=== PATIENT | female | born 1925 | race Caucasian/White ===

== ENCOUNTER 2016-05-10 19:14 | Emergency (ER) | payer MEDICARE, OTHER ==
[~2016-05-10] VITALS: Ht 160 cm; Wt 52.6 kg
[~2016-05-10 19:14] MED LIST: ****K-Phos500 MG PO; ASPIRIN E.C.325 MG PO; ASPIRIN E.C.81 MG PO; AUGMENTIN 500 M1 TAB PO; B-12-SL1000 MCG SL; B12,B-12,B 12500 MC1 PO; B121000 MCG/2 IM; BACTRIM DS 8001 TA1 PO; CEFUROXIME250 MG PO; CHILDREN'S CHEW81 MG PO; CITALOPRAM10 MG PO; CLARITIN10 MG PO; COLESTIPOL HYDRO1 GM PO; DIFLUCAN100 MG PO; DUREZOL 5 ML5 ML OS; EYE VITAMINS1 TAB PO; FLONASE 0.05% 121 EA NAS; FLORASTOR250 MG PO; K-PHOS500 MG PO; LASIX20 MG PO; LEADER NATURA500 MCG PO; LOMOTIL 0.025 M1 TAB PO; LOPRESSOR25 MG PO; MICRONIZED COLES1 GM PO; MONISTAT 72% VG; MUCINEX600 MG PO; MULTI-VITAMIN1 CTB PO; MULTI-VITAMIN1 EACH PO; NASONEX0.05 MG/AC OT; NEOMYCIN500 MG PO; Ocuflox 0.3% 5 M5 ML OT; PRESERVISION A1 EAC1 PO; PRESERVISION AR1 SGL PO; PROLENSA1.6 ML OS; PROPAFENONE HC150 MG PO; PYRIDIUM200 M1 PO; TERAZOL 320 GM VG; TYLENOL325 M1 PO; VIACTIV 500 MG-1 CT1 PO; VIACTIV SOFT C1 EACH PO; VITAMIN D31000 I1 PO; XARE20MG PO; XARELTO10 MG PO; XARELTO10 PO; [UNRECOGNIZED DRUG - OTHER] IM
[2016-05-10 19:44] LABS: BILIRUBIN NEGATIVE (NEGATIVE); BLOOD 3+ (NEGATIVE); CLARITY SL CLOUDY (CLEAR); COLOR YELLOW (YELLOW); GLUCOSE NEGATIVE (NEGATIVE); KETONE NEGATIVE (NEGATIVE); LEUKO ESTERASE NEGATIVE (NEGATIVE); NITRITE NEGATIVE (NEGATIVE); PROTEIN NEGATIVE (NEGATIVE); SPECIFIC GRAVITY <= 1.005 (1.005-1.030); UROBILINOGEN 0.2 E.U./dl (0.2-1.0)
[2016-05-10 19:53] LABS: BACTERIA TRACE; WBC 0-2 wbc/hpf (0-5)
[2016-05-10 19:54] LABS: URINE REFLEX COMMENT YES (NO)
[2016-05-10] MEDS ORDERED: PERCOCET 325 MG1 TA2 PO (19:58)
== END 2016-05-10 20:03 | disposition home or self-care (01) ==
LOC: ED 19:14
PROVIDERS: Nurse Practitioner Family
DX: N20.0 Calculus of kidney (principal); R31.9 Hematuria, unspecified; I48.91 Unspecified atrial fibrillation; Z90.49 Acquired absence of other specified parts of digestive tract; Z87.442 Personal history of urinary calculi